=== PATIENT | female | born 1960 | race Caucasian/White ===

== ENCOUNTER 2018-12-26 05:19 | Day surgery (SDC) | payer MEDICARE, OTHER ==
[2018-12-26] MEDS ORDERED: Dextrose 5%-Lactated Ringers 1,000 ML IV SCH (06:00)
[2018-12-26] MEDS ORDERED: fentaNYL 100 MCG/2 ML SDV ONE (07:06)
[2018-12-26] MEDS ORDERED: Midazolam 1 MG/ML 2 ML SDV ONE (07:06)
[2018-12-26] MEDS ORDERED: Propofol 200 MG/20 ML SDV ONE (07:06)
[2018-12-26 08:40] VITALS: BP 125/73
--- NOTE | 2018-12-28 08:29 | OR ---
DATE OF PROCEDURE: 12/26/2018 SURGEON: Mukesh Ortega MD PREOPERATIVE DIAGNOSIS: Longstanding gastroesophageal reflux disease. POSTOPERATIVE DIAGNOSES: Longstanding gastroesophageal reflux disease associated with: 1. Minimal inflammation at esophagogastric junction. 2. Mild inflammation of the antrum and proximal duodenum. OPERATIVE PROCEDURE: Upper GI endoscopy with: 1. Biopsy of the esophagogastric junction for histologic evaluation. 2. Biopsies of antrum for CLOtest. ANESTHESIA: IV sedation. INDICATIONS FOR PROCEDURE: A 58-year-old female, referred for a followup upper endoscopy. She has longstanding gastroesophageal reflux disease, simply controlled fairly good presently with Nexium 20 mg a day. Plan is to proceed with upper GI endoscopy with biopsies as indicated. At the very least, we will obtain biopsies of the esophagogastric junction to establish the patient's H. pylori status. Potential risks of the procedure including bleeding and perforation were discussed, and the patient wishes to proceed. DETAILS OF PROCEDURE: The patient was taken to the operating room and placed in a left lateral decubitus position. IV sedation was administered, after which the upper GI endoscope was passed orally through the length of the esophagus and into the stomach with retroflexion view of the fundus and thereafter through the pyloric channel into the proximal duodenum. Findings included normal hypopharynx, larynx, upper esophageal sphincter, and esophageal body. No esophageal or gastric varices were identified. At the EG junction, a small hiatal hernia was present, perhaps in the range of 1 to 2 cm, but very minimal if any gross inflammation was present. No stricturing or plaque formation was seen, i.e. no suggestion of neoplastic change was grossly identified. Within the stomach, there was some quite mild inflammation within the antrum and duodenal bulb, consisting of some patchy reddened and edematous areas. No erosions or ulcers were seen. At this point, biopsies were obtained from the antrum and sent for CLOtest for H. pylori. Multiple biopsies were then obtained from esophagogastric junction and sent for histologic evaluation. Minimal bleeding from biopsy sites was seen, and the procedure was then concluded. The patient was taken to the recovery room in satisfactory condition. At this point, we will have the patient continue her present medications consisting of Nexium and routine followup with physician assistant customer service manager, Eri Huerta, will be maintained. If the patient has either positive CLOtest or Zheng's esophagus, we will notify the patient regarding appropriate treatment and followup at that point in time. Mukesh Ortega MD /[id number]
--- NOTE | 2018-12-29 08:08 | ANES ---
DATE OF SERVICE: 12/26/2018 ADDENDUM: Diprivan waste of 100 mg. Quincy Palma CRNA /[id number]
== END 2018-12-26 08:49 | disposition home or self-care (01) ==
LOC: JP.SDS 05:19
PROVIDERS: ATTEND Surgery
DX: K21.0 Gastro-esophageal reflux disease with esophagitis (principal); K22.70 Barrett's esophagus without dysplasia; K29.80 Duodenitis without bleeding; K31.89 Other diseases of stomach and duodenum; K44.9 Diaphragmatic hernia without obstruction or gangrene; J44.9 Chronic obstructive pulmonary disease, unspecified; G47.33 Obstructive sleep apnea (adult) (pediatric); E87.6 Hypokalemia; E11.22 Type 2 diabetes mellitus with diabetic chronic kidney disease; N18.9 Chronic kidney disease, unspecified; I50.9 Heart failure, unspecified; F41.9 Anxiety disorder, unspecified; F32.9 Major depressive disorder, single episode, unspecified; Z87.11 Personal history of peptic ulcer disease; Z88.1 Allergy status to other antibiotic agents; Z88.0 Allergy status to penicillin; Z88.2 Allergy status to sulfonamides; Z88.8 Allergy status to other drugs, medicaments and biological substances; Z91.048 Other nonmedicinal substance allergy status; Z91.040 Latex allergy status; Z79.82 Long term (current) use of aspirin; Z79.4 Long term (current) use of insulin; Z99.89 Dependence on other enabling machines and devices
CPT/HCPCS: 43239; 87081; 88305; J2250; J2704; J3010; J7042

== ENCOUNTER 2019-07-27 13:15 | Observation (INO) | payer MEDICARE, OTHER ==
[2019-07-27] MEDS ORDERED: Non-Formulary Medication 1 Each (Albuterol/Ipratropium [Combivent Respimat] 1 PUFF) IH PRN (14:26)
[2019-07-27] MEDS ORDERED: traZODone 50 MG Tab PO PRN (14:26)
[2019-07-27] MEDS ORDERED: Albuterol 0.083% 2.5 MG/3 ML Neb Soln NEB PRN (14:29)
[2019-07-27] MEDS ORDERED: Glucose Gel 15 GM in 37.5 GM Tube PO PRN (14:29)
[2019-07-27] MEDS ORDERED: 50% Dextrose in Water 50 ML Syringe IV PRN (14:29)
[2019-07-27] MEDS ORDERED: Polyethylene Glycol 3350 Powder 17 GM Packet PO PRN (14:29)
[2019-07-27] MEDS ORDERED: Ondansetron 4 MG/2 ML SDV IV PRN (14:29)
[2019-07-27] MEDS ORDERED: Acetaminophen 325 MG Tab PO PRN (14:29)
[2019-07-27] MEDS ORDERED: INSULIN DEGLUDEC 30 UNIT SQ SCH (14:30)
--- NOTE | 2019-07-27 14:41 | PCM.HP.2 ---
H&P History of Present Illness - General Date of Service: 07/27/19 Admit Problem/Dx: Admission Diagnosis/Problem Admission Diagnosis/Problem Subdural hematoma Source of Information: Patient, Provider, RN Notes Reviewed History Limitations: Reports: No Limitations - History of Present Illness Initial Comments - Free Text/Narative: Ms. Kyle is a 59-year-old woman who was admitted as a direct admission from the clinic to observation status, for monitoring of a traumatic head injury with a small subdural hematoma and tiny arachnoid hemorrhage. She slipped and fell last night hitting her head and has had a severe headache since that time. She was seen and evaluated at the clinic, CT scan showed the above findings. CT scan of the pelvis showed no acute fracture. She denies any acute neurologic changes or deficits other than ongoing headache. headache Pain Score (Numeric/FACES): 9 - Related Data Allergies/Adverse Reactions: Allergies Allergy/AdvReac Type Severity Reaction Status Date / Time cholecalciferol (vitamin D3) Allergy Severe Anaphylactic Verified 07/27/19 13:51 [From Vitamin D3] Shock folic acid Allergy Severe Anaphylactic Verified 07/27/19 13:51 Shock adhesive tape Allergy Other Verified 07/27/19 13:51 cephalexin monohydrate Allergy Hives Verified 07/27/19 13:51 [From Keflex] Penicillins Allergy Hives Verified 07/27/19 13:51 sucralfate [From Carafate] Allergy Hives Verified 07/27/19 13:51 Sulfa (Sulfonamide Allergy Hives Verified 07/27/19 13:51 Antibiotics) sulfasalazine Allergy Hives Verified 07/27/19 13:51 dihydrotachysterol Allergy Severe Anaphylactic Uncoded 07/27/19 13:51 Shock Home Medications: Home Meds Insulin Lispro [HumaLOG] 10 units SQ ASDIRECTED 12/09/14 [History] Spironolactone, Micronized [Spironolactone] 150 mg PO BID 12/09/14 [History] Aspirin [Jihan Chewable Aspirin] 81 mg PO DAILY 12/10/14 [History] Potassium Chloride [Klor-Con 10] 10 meq PO DAILY 01/30/15 [History] traZODone 50 mg PO BEDTIME PRN 01/30/15 [History] Magnesium Chloride [Slow-Mag] 250 mg PO DAILY 01/31/15 [History] Albuterol/Ipratropium [Combivent Respimat] 1 puff IH Q6H PRN 12/20/18 [History] Biotin 10 mg PO DAILY 12/20/18 [History] ClonazePAM [KlonoPIN] 1 - 2 mg PO ASDIRECTED PRN 12/20/18 [History] Esomeprazole [NexIUM] 20 mg PO DAILY 12/20/18 [History] Furosemide [Lasix] 40 mg PO DAILY 12/20/18 [History] Gabapentin [Neurontin] 600 mg PO TID 12/20/18 [History] Insulin Degludec [Tresiba Flextouch U-100] 30 unit SQ Q12H 12/20/18 [History] Loperamide [Imodium AD] 4 mg PO TIDMEALS 12/20/18 [History] Mycophenolate [Myfortic] 360 mg PO BID 12/20/18 [History] Oxybutynin 5 mg PO DAILY 12/20/18 [History] Tacrolimus [Prograf] 1 mg PO Q12H 12/20/18 [History] Topiramate [Topamax] 25 mg PO BID 12/20/18 [History] Venlafaxine [Effexor XR] 150 mg PO DAILY 12/20/18 [History] Calcium Carbonate [Calcium] 500 mg PO DAILY 07/27/19 [History] Cetirizine [ZyrTEC] 10 mg PO DAILY 07/27/19 [History] Simvastatin 10 mg PO DAILY 07/27/19 [History] Past Medical History HEENT History: Reports: Cataract Respiratory History: Reports: Bronchitis, Recurrent Gastrointestinal History: Reports: GERD, PUD 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: Musculoskeletal History: Reports: Other (See Below) Neurological History: Reports: Neuropathy, Diabetic Psychiatric History: Reports: Anxiety, Depression Endocrine/Metabolic History: Reports: Diabetes, Type II Hematologic History: Reports: Anemia Immunologic History: Reports: Immunosuppression, Solid Organ Transplant, Other ( See Below) Other Immunologic History: liver - Infectious Disease History Infectious Disease History: Reports: Chicken Pox, Hepatitis B, Measles, 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, Other - Past Surgical History HEENT Surgical History: Reports: Cataract Surgery, Tonsillectomy GI Surgical History: Reports: Appendectomy, Cholecystectomy, Colonoscopy, EGD, Other (See Below) Other GI Surgeries/Procedures: liver transplant Female Surgical History: Reports: Hysterectomy, Tubal Ligation Social & Family History - Family History Family Medical History: Noncontributory - Tobacco Use Smoking Status *Q: Never Smoker - Caffeine Use Caffeine Use: Reports: Soda - Recreational Drug Use Recreational Drug Use: No H&P Review of Systems - Review of Systems: Review Of Systems: See Below General: Reports: No Symptoms HEENT: Reports: Headaches. Denies: Ear Pain, Hearing Changes, Sinus Congestion , Sore Throat, Visual Changes Pulmonary: Reports: No Symptoms Cardiovascular: Reports: No Symptoms Gastrointestinal: Reports: No Symptoms Genitourinary: Reports: No Symptoms Musculoskeletal: Reports: No Symptoms Skin: Reports: No Symptoms Psychiatric: Reports: No Symptoms Neurological: Reports: Headache. Denies: Confusion, Dizziness, Numbness, Paresthesia, Trouble Speaking, Difficulty Walking, Change in Speech Hematologic/Lymphatic: Reports: No Symptoms Immunologic: Reports: No Symptoms Exam - Exam Exam: See Below - Vital Signs Vital Signs: Last Vital Signs Temp 97.6 F 07/27/19 13:40 Pulse 77 07/27/19 13:40 Resp 12 07/27/19 13:40 BP 113/67 07/27/19 13:40 Pulse Ox 97 07/27/19 13:40 Weight: 225 lb - Exam General: Alert, Oriented, Cooperative, Moderate Distress HEENT: PERRLA, Conjunctiva Clear, Hearing Intact, Normal Nasal Septum, Posterior Pharynx Clear Neck: Supple, Trachea Midline, +2 Carotid Pulse wo Bruit Lungs: Clear to Auscultation, Normal Respiratory Effort Cardiovascular: Regular Rate, Regular Rhythm, Normal S1, Normal S2. No: Systolic Murmur, Diastolic Murmur GI/Abdominal Exam: Soft, Non-Tender, No Organomegaly, No Distention Back Exam: Normal Inspection, Full Range of Motion Extremities: Non-Tender, No Pedal Edema Skin: Warm, Dry, Intact Neurological: Cranial Nerves Intact, Strength Equal Bilateral, Normal Speech, Normal Tone, Sensation Intact. No: Focal Deficit Neuro Extensive - Mental Status: Alert, Oriented x3, Normal Mood/Affect, Normal Cognition, Memory Intact Sepsis Event Note - Evaluation Sepsis Screening Result: No Definite Risk - Focused Exam Vital Signs: Vital Signs Temp Pulse Resp BP Pulse Ox 07/27/19 13:40 97.6 F 77 12 113/67 97 Date Exam was Performed: 07/27/19 Time Exam was Performed: 14:56 *Q Meaningful Use (ADM) - VTE *Q VTE Pharmacological Contraindications *Q: Active Hemorrhage - VTE Risk Assess *Q Each Risk Factor Represents 1 Point: Obesity ( BMI > 25 kg/m2) Total Score 1 Point Risk Factors: 1 Each Risk Factor Represents 2 Points: Age 60 - 74 Years Total Score 2 Point Risk Factors: 2 Each Risk Factor Represents 3 Points: None Total Score 3 Point Risk Factors: 0 Each Risk Factor Represents 5 Points: None Total Score 5 Point Risk Factors: 0 Venous Thromboembolism Risk Factor Score *Q: 3 Problem List Initiated/Reviewed/Updated: Yes Orders Last 24hrs: Active Orders 24 hr Category Date Time Status Patient Status [ADT] Routine ADT 07/27/19 14:29 Active Ambulate [RC] QID Care 07/27/19 14:29 Active Blood Glucose Check, Bedside [RC] QIDACANDBED Care 07/27/19 14:29 Active Communication Order [RC] STAT Care 07/27/19 14:29 Active Diabetes Education [RC] Click to Edit Care 07/27/19 14:29 Active Height and Weight [RC] DAILY Care 07/27/19 14:29 Active Intake and Output [RC] QSHIFT Care 07/27/19 14:29 Active Neuro Check [RC] Q4H Care 07/27/19 14:33 Active Notify Provider Vital Signs [RC] ASDIRECTED Care 07/27/19 14:29 Active Notify Provider [RC] PRN Care 07/27/19 14:29 Active Oxygen Therapy [RC] PRN Care 07/27/19 14:29 Active RT Aerosol Therapy [RC] ASDIRECTED Care 07/27/19 14:32 Active Up With Assistance [RC] ASDIRECTED Care 07/27/19 14:29 Active Up to Chair [RC] QID Care 07/27/19 14:29 Active VTE/DVT Education [RC] Per Unit Routine Care 07/27/19 14:29 Active Vital Signs [RC] Q4H Care 07/27/19 14:29 Active Consistent Carbohydrate Diet [DIET] Diet 07/27/19 Lunch Active Head wo Cont [CT] Urgent Exams 07/28/19 07:00 Ordered GLUCOSE POC LAB TO COLLECT [POC] QIDACANDBED Lab 08/01/19 07:30 Ordered GLUCOSE POC LAB TO COLLECT [POC] QIDACANDBED Lab 08/01/19 11:30 Ordered GLUCOSE POC LAB TO COLLECT [POC] QIDACANDBED Lab 08/01/19 16:30 Ordered GLUCOSE POC LAB TO COLLECT [POC] QIDACANDBED Lab 08/01/19 21:00 Ordered GLUCOSE POC LAB TO COLLECT [POC] QIDACANDBED Lab 08/02/19 07:30 Ordered GLUCOSE POC LAB TO COLLECT [POC] QIDACANDBED Lab 08/02/19 11:30 Ordered GLUCOSE POC LAB TO COLLECT [POC] QIDACANDBED Lab 08/02/19 16:30 Ordered GLUCOSE POC LAB TO COLLECT [POC] QIDACANDBED Lab 08/02/19 21:00 Ordered GLUCOSE POC LAB TO COLLECT [POC] QIDACANDBED Lab 08/03/19 07:30 Ordered GLUCOSE POC LAB TO COLLECT [POC] QIDACANDBED Lab 08/03/19 11:30 Ordered GLUCOSE POC LAB TO COLLECT [POC] QIDACANDBED Lab 08/03/19 16:30 Ordered GLUCOSE POC LAB TO COLLECT [POC] QIDACANDBED Lab 08/03/19 21:00 Ordered GLUCOSE POC LAB TO COLLECT [POC] QIDACANDBED Lab 08/04/19 07:30 Ordered GLUCOSE POC LAB TO COLLECT [POC] QIDACANDBED Lab 08/04/19 11:30 Ordered GLUCOSE POC LAB TO COLLECT [POC] QIDACANDBED Lab 08/04/19 16:30 Ordered GLUCOSE POC LAB TO COLLECT [POC] QIDACANDBED Lab 08/04/19 21:00 Ordered GLUCOSE POC LAB TO COLLECT [POC] QIDACANDBED Lab 08/05/19 07:30 Ordered GLUCOSE POC LAB TO COLLECT [POC] QIDACANDBED Lab 08/05/19 11:30 Ordered GLUCOSE POC LAB TO COLLECT [POC] QIDACANDBED Lab 08/05/19 16:30 Ordered GLUCOSE POC LAB TO COLLECT [POC] QIDACANDBED Lab 08/05/19 21:00 Ordered GLUCOSE POC LAB TO COLLECT [POC] QIDACANDBED Lab 08/06/19 07:30 Ordered GLUCOSE POC LAB TO COLLECT [POC] QIDACANDBED Lab 08/06/19 11:30 Ordered GLUCOSE POC LAB TO COLLECT [POC] QIDACANDBED Lab 08/06/19 16:30 Ordered GLUCOSE POC LAB TO COLLECT [POC] QIDACANDBED Lab 08/06/19 21:00 Ordered GLUCOSE POC LAB TO COLLECT [POC] QIDACANDBED Lab 08/07/19 07:30 Ordered GLUCOSE POC LAB TO COLLECT [POC] QIDACANDBED Lab 08/07/19 11:30 Ordered GLUCOSE POC LAB TO COLLECT [POC] QIDACANDBED Lab 08/07/19 16:30 Ordered GLUCOSE POC LAB TO COLLECT [POC] QIDACANDBED Lab 08/07/19 21:00 Ordered GLUCOSE POC LAB TO COLLECT [POC] QIDACANDBED Lab 08/08/19 07:30 Ordered GLUCOSE POC LAB TO COLLECT [POC] QIDACANDBED Lab 08/08/19 11:30 Ordered GLUCOSE POC LAB TO COLLECT [POC] QIDACANDBED Lab 08/08/19 16:30 Ordered GLUCOSE POC LAB TO COLLECT [POC] QIDACANDBED Lab 08/08/19 21:00 Ordered GLUCOSE POC LAB TO COLLECT [POC] QIDACANDBED Lab 08/09/19 07:30 Ordered GLUCOSE POC LAB TO COLLECT [POC] QIDACANDBED Lab 08/09/19 11:30 Ordered GLUCOSE POC LAB TO COLLECT [POC] QIDACANDBED Lab 08/09/19 16:30 Ordered GLUCOSE POC LAB TO COLLECT [POC] QIDACANDBED Lab 08/09/19 21:00 Ordered GLUCOSE POC LAB TO COLLECT [POC] QIDACANDBED Lab 08/10/19 07:30 Ordered GLUCOSE POC LAB TO COLLECT [POC] QIDACANDBED Lab 08/10/19 11:30 Ordered GLUCOSE POC LAB TO COLLECT [POC] QIDACANDBED Lab 08/10/19 16:30 Ordered GLUCOSE POC LAB TO COLLECT [POC] QIDACANDBED Lab 08/10/19 21:00 Ordered GLUCOSE POC LAB TO COLLECT [POC] QIDACANDBED Lab 08/11/19 07:30 Ordered GLUCOSE POC LAB TO COLLECT [POC] QIDACANDBED Lab 08/11/19 11:30 Ordered GLUCOSE POC LAB TO COLLECT [POC] QIDACANDBED Lab 08/11/19 16:30 Ordered GLUCOSE POC LAB TO COLLECT [POC] QIDACANDBED Lab 08/11/19 21:00 Ordered GLUCOSE POC LAB TO COLLECT [POC] QIDACANDBED Lab 08/12/19 07:30 Ordered GLUCOSE POC LAB TO COLLECT [POC] QIDACANDBED Lab 08/12/19 11:30 Ordered GLUCOSE POC LAB TO COLLECT [POC] QIDACANDBED Lab 08/12/19 16:30 Ordered GLUCOSE POC LAB TO COLLECT [POC] QIDACANDBED Lab 08/12/19 21:00 Ordered GLUCOSE POC LAB TO COLLECT [POC] QIDACANDBED Lab 08/13/19 07:30 Ordered GLUCOSE POC LAB TO COLLECT [POC] QIDACANDBED Lab 08/13/19 11:30 Ordered GLUCOSE POC LAB TO COLLECT [POC] QIDACANDBED Lab 08/13/19 16:30 Ordered GLUCOSE POC LAB TO COLLECT [POC] QIDACANDBED Lab 08/13/19 21:00 Ordered GLUCOSE POC LAB TO COLLECT [POC] QIDACANDBED Lab 08/14/19 07:30 Ordered GLUCOSE POC LAB TO COLLECT [POC] QIDACANDBED Lab 08/14/19 11:30 Ordered GLUCOSE POC LAB TO COLLECT [POC] QIDACANDBED Lab 08/14/19 16:30 Ordered GLUCOSE POC LAB TO COLLECT [POC] QIDACANDBED Lab 08/14/19 21:00 Ordered GLUCOSE POC LAB TO COLLECT [POC] QIDACANDBED Lab 08/15/19 07:30 Ordered GLUCOSE POC LAB TO COLLECT [POC] QIDACANDBED Lab 08/15/19 11:30 Ordered GLUCOSE POC LAB TO COLLECT [POC] QIDACANDBED Lab 08/15/19 16:30 Ordered GLUCOSE POC LAB TO COLLECT [POC] QIDACANDBED Lab 08/15/19 21:00 Ordered GLUCOSE POC LAB TO COLLECT [POC] QIDACANDBED Lab 08/16/19 07:30 Ordered GLUCOSE POC LAB TO COLLECT [POC] QIDACANDBED Lab 08/16/19 11:30 Ordered GLUCOSE POC LAB TO COLLECT [POC] QIDACANDBED Lab 08/16/19 16:30 Ordered GLUCOSE POC LAB TO COLLECT [POC] QIDACANDBED Lab 08/16/19 21:00 Ordered GLUCOSE POC LAB TO COLLECT [POC] QIDACANDBED Lab 08/17/19 07:30 Ordered GLUCOSE POC LAB TO COLLECT [POC] QIDACANDBED Lab 08/17/19 11:30 Ordered GLUCOSE POC LAB TO COLLECT [POC] QIDACANDBED Lab 08/17/19 16:30 Ordered GLUCOSE POC LAB TO COLLECT [POC] QIDACANDBED Lab 08/17/19 21:00 Ordered GLUCOSE POC LAB TO COLLECT [POC] QIDACANDBED Lab 08/18/19 07:30 Ordered GLUCOSE POC LAB TO COLLECT [POC] QIDACANDBED Lab 08/18/19 11:30 Ordered GLUCOSE POC LAB TO COLLECT [POC] QIDACANDBED Lab 08/18/19 16:30 Ordered GLUCOSE POC LAB TO COLLECT [POC] QIDACANDBED Lab 08/18/19 21:00 Ordered GLUCOSE POC LAB TO COLLECT [POC] QIDACANDBED Lab 08/19/19 07:30 Ordered GLUCOSE POC LAB TO COLLECT [POC] QIDACANDBED Lab 08/19/19 11:30 Ordered GLUCOSE POC LAB TO COLLECT [POC] QIDACANDBED Lab 08/19/19 16:30 Ordered GLUCOSE POC LAB TO COLLECT [POC] QIDACANDBED Lab 08/19/19 21:00 Ordered GLUCOSE POC LAB TO COLLECT [POC] QIDACANDBED Lab 08/20/19 07:30 Ordered GLUCOSE POC LAB TO COLLECT [POC] QIDACANDBED Lab 08/20/19 11:30 Ordered GLUCOSE POC LAB TO COLLECT [POC] QIDACANDBED Lab 08/20/19 16:30 Ordered GLUCOSE POC LAB TO COLLECT [POC] QIDACANDBED Lab 08/20/19 21:00 Ordered GLUCOSE POC LAB TO COLLECT [POC] QIDACANDBED Lab 08/21/19 07:30 Ordered GLUCOSE POC LAB TO COLLECT [POC] QIDACANDBED Lab 07/28/19 07:30 Ordered GLUCOSE POC LAB TO COLLECT [POC] QIDACANDBED Lab 07/28/19 11:30 Ordered GLUCOSE POC LAB TO COLLECT [POC] QIDACANDBED Lab 07/28/19 16:30 Ordered GLUCOSE POC LAB TO COLLECT [POC] QIDACANDBED Lab 07/28/19 21:00 Ordered GLUCOSE POC LAB TO COLLECT [POC] QIDACANDBED Lab 07/29/19 07:30 Ordered GLUCOSE POC LAB TO COLLECT [POC] QIDACANDBED Lab 07/29/19 11:30 Ordered GLUCOSE POC LAB TO COLLECT [POC] QIDACANDBED Lab 07/29/19 16:30 Ordered GLUCOSE POC LAB TO COLLECT [POC] QIDACANDBED Lab 07/29/19 21:00 Ordered GLUCOSE POC LAB TO COLLECT [POC] QIDACANDBED Lab 07/30/19 07:30 Ordered GLUCOSE POC LAB TO COLLECT [POC] QIDACANDBED Lab 07/30/19 11:30 Ordered GLUCOSE POC LAB TO COLLECT [POC] QIDACANDBED Lab 07/30/19 16:30 Ordered GLUCOSE POC LAB TO COLLECT [POC] QIDACANDBED Lab 07/30/19 21:00 Ordered GLUCOSE POC LAB TO COLLECT [POC] QIDACANDBED Lab 07/31/19 07:30 Ordered GLUCOSE POC LAB TO COLLECT [POC] QIDACANDBED Lab 07/31/19 11:30 Ordered GLUCOSE POC LAB TO COLLECT [POC] QIDACANDBED Lab 07/31/19 16:30 Ordered GLUCOSE POC LAB TO COLLECT [POC] QIDACANDBED Lab 07/31/19 21:00 Ordered Acetaminophen [Tylenol] Med 07/27/19 14:29 Ordered 650 mg PO Q4H PRN Albuterol [Proventil Neb Soln] Med 07/27/19 14:29 Ordered 2.5 mg NEB Q4H PRN Albuterol/Ipratropium [Combivent Respimat] Med 07/27/19 14:26 Ordered 1 puff IH Q6H PRN Biotin [Biotin] Med 07/28/19 09:00 Ordered 10 mg PO DAILY Cetirizine [ZyrTEC] Med 07/28/19 09:00 Ordered 10 mg PO DAILY Dextrose 50% in Water Med 07/27/19 14:29 Ordered 50 ml IV ONETIME PRN Dextrose [Glutose 15] Med 07/27/19 14:29 Ordered 15 gm PO ONETIME PRN Esomeprazole [NexIUM] Med 07/28/19 09:00 Ordered 20 mg PO DAILY Furosemide [Lasix] Med 07/28/19 09:00 Ordered 40 mg PO DAILY Gabapentin [Neurontin] Med 07/27/19 21:00 Ordered 600 mg PO TID Insulin Degludec [Tresiba Flextouch U-100] Med 07/27/19 14:30 Ordered 30 unit SQ Q12H Ondansetron [Zofran] Med 07/27/19 14:29 Ordered 4 mg IV Q4H PRN Oxybutynin Med 07/28/19 09:00 Ordered 5 mg PO DAILY Polyethylene Glycol 3350 [MiraLAX] Med 07/27/19 14:29 Ordered 17 gm PO DAILY PRN Potassium Chloride [Klor-Con 10] Med 07/28/19 09:00 Ordered 10 meq PO DAILY Simvastatin [Simvastatin] Med 07/28/19 09:00 Ordered 10 mg PO DAILY Tacrolimus [Prograf] Med 07/27/19 14:30 Ordered 1 mg PO Q12H Topiramate [Topamax] Med 07/27/19 21:00 Ordered 25 mg PO BID Venlafaxine [Effexor XR] Med 07/28/19 09:00 Ordered 150 mg PO DAILY oxyCODONE Med 07/27/19 14:29 Ordered 5 mg PO Q4H PRN traZODone Med 07/27/19 14:26 Ordered 50 mg PO BEDTIME PRN Sequential Compression Device [OM.PC] Per Unit Routine Oth 07/27/19 14:32 Ordered VTE Pharmacological Contraindications [AST] Per Unit Oth 07/27/19 14:29 Ordered Routine Resuscitation Status Routine Resus Stat 07/27/19 14:29 Ordered Medication Orders Acetaminophen (Tylenol) 650 mg PO Q4H PRN PRN Reason: Pain (Mild 1-3)/fever Albuterol (Proventil Neb Soln) 2.5 mg NEB Q4H PRN PRN Reason: Shortness Of Breath/wheezing Cetirizine HCl (Zyrtec) 10 mg PO DAILY [facility]IRE Dextrose (Glutose 15) 15 gm PO ONETIME PRN PRN Reason: Hypoglycemia Dextrose/Water (Dextrose 50% In Water) 50 ml IV ONETIME PRN PRN Reason: Hypoglycemia Furosemide (Lasix) 40 mg PO DAILY CLAIRE Gabapentin (Neurontin) 600 mg PO TID CLAIRE Non-Formulary Medication (Albuterol/Ipratropium [Combivent Respimat]) 1 puff IH Q6H PRN PRN Reason: Shortness of Breath Non-Formulary Medication (Biotin [Biotin]) 10 mg PO DAILY [facility] Non-Formulary Medication (Esomeprazole [Nexium]) 20 mg PO DAILY [facility] Non-Formulary Medication (Insulin Degludec [Tresiba Flextouch U-100]) 30 unit SQ Q12H [facility] Non-Formulary Medication (Potassium Chloride [Klor-Con 10]) 10 meq PO DAILY [facility] Non-Formulary Medication (Simvastatin [Simvastatin]) 10 mg PO DAILY [facility] Non-Formulary Medication (Venlafaxine [Effexor Xr]) 150 mg PO DAILY [facility] Ondansetron HCl (Zofran) 4 mg IV Q4H PRN PRN Reason: Nausea/Vomiting Oxybutynin Chloride (Oxybutynin) 5 mg PO DAILY [facility]IRE Oxycodone HCl (Oxycodone) 5 mg PO Q4H PRN PRN Reason: Pain (moderate 4-6) Polyethylene Glycol (Miralax) 17 gm PO DAILY PRN PRN Reason: Constipation Tacrolimus (Prograf) 1 mg PO Q12H CLAIRE Topiramate (Topamax) 25 mg PO BID CLAIRE Trazodone HCl (Trazodone) 50 mg PO BEDTIME PRN PRN Reason: Pain Assessment/Plan Comment:: ASSESSMENT AND PLAN TRAUMATIC HEAD INJURY WITH SUBDURAL HEMATOMA AND TINY SUBARACHNOID HEMORRHAGE- there are than headache has no current neurologic symptoms or deficits. -Hold aspirin -Neurochecks every 4 hours -Repeat CT scan in a.m. -Outpatient follow-up with neurosurgery TYPE 2 DIABETES MELLITUS -Continue usual dose of long-acting insulin -4 times daily glucometers -High-dose sliding scale Humalog STATUS [employer]ANSPLANT -Continue usual outpatient medications MAINTENANCE ISSUES -DVT prophylaxis; not indicated -GI prophylaxis; not indicated -Ramos catheter; not indicated -Nutrition; consistent carb diet -Nicotine dependence; not required CODE STATUS-FULL CODE ADMISSION STATUS-this patient will be admitted to observation status, expect no more than a one night hospital stay for evaluation and management of problems as outlined above. DISPOSITION-anticipate discharge to home after the hospital stay. PRIMARY CARE PROVIDER-Keny Huerta - Mortality Measure Prognosis:: Good
[2019-07-27] MEDS ORDERED: TRAZODONE 100 MG PO PRN (15:25)
[2019-07-27] MEDS ORDERED: COMBIVENT INH PRN (15:50)
[2019-07-27] MEDS: oxyCODONE 5 MG Tab PO PRN ×2 (16:07→20:05)
[2019-07-27] MEDS ORDERED: Insulin Lispro 100 Unit/ML 3 ML KwikPen SUBCUT SCH (17:00)
[2019-07-27] MEDS: NOVOLOG FLEX SUBCUT SCH ×2 (17:37→21:51)
[2019-07-27] MEDS: MYCOPHENOLIC ACID 180 MG PO SCH (21:44)
[2019-07-27] MEDS: Gabapentin 300 MG Cap (PTOM) PO SCH (21:44)
[2019-07-27] MEDS: TOPIRAMATE 25 MG PO SCH (21:45)
[2019-07-27] MEDS: TACROLIMUS 1 MG PO SCH (21:47)
[2019-07-27] MEDS: TRESIBA 100 UNIT/ML SUBCUT SCH (21:52)
[2019-07-28] MEDS: oxyCODONE 5 MG Tab PO PRN ×3 (00:04→09:30)
--- NOTE | 2019-07-28 06:13 | CRLCT ---
INDICATION: Follow-up subdural and subarachnoid hemorrhage. COMPARISON: COMPARISON DATE TECHNIQUE: CT examination of the head was performed with 3 mm thick axial sections without intravenous contrast. Images were obtained from the vertex of the skull through the skull base, and I examined the images with the brain and bone windows. Please note that all CT scans at this facility use dose modulation, iterative reconstruction, and/or weight-based dosing when appropriate to reduce radiation dose to as low as reasonably achievable. FINDINGS: There is stable appearance of a small left high anterior right falcine subdural hematoma with minimal adjacent subarachnoid hemorrhage. There is also stable thrombosis of a dural vein located more laterally to the right of midline. The rest of the brain is normal in appearance for the patient`s age on today`s study, with no sign of mass lesion, mass effect, hemorrhage, or edema. The ventricles and sulci are normal in appearance for the patient`s age. The visualized portions of the orbits are normal in appearance. The visualized paranasal sinuses and mastoids are clear. The osseous structures are normal in their appearance with no sign of abnormality in the skull base or calvarium. IMPRESSION: Stable small left high anterior right falcine subdural hematoma with minimal adjacent subarachnoid hemorrhage. No sign of mass effect upon the adjacent brain. No sign of any injury to the brain elsewhere. Please note that all CT scans at this facility use dose modulation, iterative reconstruction, and/or weight-based dosing when appropriate to reduce radiation dose to as low as reasonably achievable. Dictated by Hero Beltran MD @ Jul 28 2019 6:07AM Signed by Dr. Hero Beltran @ Jul 28 2019 6:11AM
[2019-07-28] MEDS: NOVOLOG FLEX SUBCUT SCH (07:03)
[2019-07-28 07:27] VITALS: BP 107/43; PULSE 72
[2019-07-28] MEDS ORDERED: ESOMEPRAZOLE 20 MG PO SCH (07:30)
[2019-07-28] MEDS: Gabapentin 300 MG Cap (PTOM) PO SCH (08:30)
[2019-07-28] MEDS: MYCOPHENOLIC ACID 180 MG PO SCH (08:31)
[2019-07-28] MEDS: TOPIRAMATE 25 MG PO SCH (08:32)
[2019-07-28] MEDS: TACROLIMUS 1 MG PO SCH (08:35)
[2019-07-28] MEDS: TRESIBA 100 UNIT/ML SUBCUT SCH (08:36)
[2019-07-28] MEDS ORDERED: Furosemide 40 MG Tab PO SCH (09:00)
[2019-07-28] MEDS ORDERED: OXYBUTYNIN 5 MG PO SCH (09:00)
[2019-07-28] MEDS ORDERED: KERATIN PO SCH (09:00)
[2019-07-28] MEDS ORDERED: Non-Formulary Medication 1 Each (Biotin [Biotin] 10 MG) PO SCH (09:00)
[2019-07-28] MEDS ORDERED: Furosemide 20 MG Tab (PTOM) PO SCH (09:00)
[2019-07-28] MEDS ORDERED: Non-Formulary Medication 1 Each (Venlafaxine [Effexor Xr] 150 MG) PO SCH (09:00)
[2019-07-28] MEDS ORDERED: Non-Formulary Medication 1 Each (Potassium Chloride [Klor-Con 10] 10 MEQ) PO SCH (09:00)
[2019-07-28] MEDS ORDERED: POTASSIUM CL 10 MEQ PO SCH (09:00)
[2019-07-28] MEDS ORDERED: SIMVASTATIN 10 MG PO SCH (09:00)
[2019-07-28] MEDS ORDERED: Non-Formulary Medication 1 Each (Esomeprazole [Nexium] 20 MG) PO SCH (09:00)
[2019-07-28] MEDS ORDERED: Cetirizine 10 MG Tab PO SCH (09:00)
[2019-07-28] MEDS ORDERED: BIOTIN PO SCH (09:00)
[2019-07-28] MEDS ORDERED: VENLAFAXINE 150 MG PO SCH (09:00)
[2019-07-28] MEDS ORDERED: Non-Formulary Medication 1 Each (Simvastatin [Simvastatin] 10 MG) PO SCH (09:00)
--- NOTE | 2019-07-28 09:13 | PCM.DCSUM1 ---
Discharge Summary - Hospital Course Brief History: Ms. Kyle is a 59-year-old woman who was admitted as a direct admission from the clinic to observation status for monitoring of small subdural hematoma and tiny subarachnoid hemorrhage secondary to traumatic head injury. - Discharge Data Discharge Date: 07/28/19 Discharge Disposition: Home, Self-Care 01 Condition: Fair - Referral to Home Health Primary Care Physician: Eri Huerta PA-C - Discharge Diagnosis/Problem(s) (1) Liver transplant recipient SNOMED Code(s): 704433411 ICD Code: Z94.4 - LIVER TRANSPLANT STATUS Status: Acute Current Visit: Yes (2) Subdural hematoma SNOMED Code(s): 544831050 ICD Code: S06.5X9A - TRAUM SUBDR HEM W LOC OF UNSP DURATION, INIT Status: Acute Current Visit: Yes (3) Subarachnoid hemorrhage SNOMED Code(s): 463654923 ICD Code: I60.9 - NONTRAUMATIC SUBARACHNOID HEMORRHAGE, UNSPECIFIED Status : Acute Current Visit: Yes (4) Type 2 diabetes mellitus SNOMED Code(s): 50989571 ICD Code: E11.9 - TYPE 2 DIABETES MELLITUS WITHOUT COMPLICATIONS Status: Acute Current Visit: Yes - Patient Summary/Data Hospital Course: Ms. Kyle is a 59-year-old woman who was admitted as a direct admission from the clinic to observation status, for monitoring of a traumatic head injury with a small subdural hematoma and tiny arachnoid hemorrhage. She slipped and fell last night hitting her head and has had a severe headache since that time. She was seen and evaluated at the clinic, CT scan showed the above findings. CT scan of the pelvis showed no acute fracture. She denies any acute neurologic changes or deficits other than ongoing headache. Neurochecks were obtained every 4 hours during hospitalization and showed no new neurologic findings. Headache improved moderately during hospitalization, she continued to experience pain in her sacrum. Follow-up CT scan of the head was obtained on the morning of discharge and showed that the subarachnoid hemorrhage and subdural hematoma were stable in size. Activity will be as tolerated and she will resume her usual diet. Follow-up appointment will be scheduled with her primary care provider within 1 week. Follow-up appointment will be scheduled with neurosurgery, with a follow-up head scan, in 2 weeks. She will return number immediately to the emergency department if she notes increasing headache or any new neurologic symptoms. - Patient Instructions Diet: Diabetic Diet Activity: As Tolerated Other/Special Instructions: Please schedule neurosurgical consult with follow- up CT scan in 2 weeks. Please schedule follow-up appointment with primary care provider within 1 week. Patient is to return to the emergency department if she notes increasing headache or any neurologic changes or symptoms. - Discharge Plan *PRESCRIPTION DRUG MONITORING PROGRAM REVIEWED*: Not Applicable *COPY OF PRESCRIPTION DRUG MONITORING REPORT IN PATIENT CYNDIE: Not Applicable Prescriptions/Med Rec: oxyCODONE 5 mg PO Q4H PRN #16 tablet PRN Reason: Pain (Moderate 4-6) Home Medications: Home Meds Insulin Lispro [HumaLOG] 10 units SQ ASDIRECTED 12/09/14 [History] Spironolactone, Micronized [Spironolactone] 150 mg PO BID 12/09/14 [History] Aspirin [Jihan Chewable Aspirin] 81 mg PO DAILY 12/10/14 [History] Potassium Chloride [Klor-Con 10] 10 meq PO DAILY 01/30/15 [History] traZODone 50 mg PO BEDTIME PRN 01/30/15 [History] Magnesium Chloride [Slow-Mag] 250 mg PO DAILY 01/31/15 [History] Albuterol/Ipratropium [Combivent Respimat] 1 puff IH Q6H PRN 12/20/18 [History] Biotin 10 mg PO DAILY 12/20/18 [History] ClonazePAM [KlonoPIN] 1 - 2 mg PO ASDIRECTED PRN 12/20/18 [History] Esomeprazole [NexIUM] 20 mg PO DAILY 12/20/18 [History] Furosemide [Lasix] 40 mg PO DAILY 12/20/18 [History] Gabapentin [Neurontin] 600 mg PO TID 12/20/18 [History] Insulin Degludec [Tresiba Flextouch U-100] 30 unit SQ Q12H 12/20/18 [History] Loperamide [Imodium AD] 4 mg PO TIDMEALS 12/20/18 [History] Mycophenolate [Myfortic] 360 mg PO BID 12/20/18 [History] Oxybutynin 5 mg PO DAILY 12/20/18 [History] Tacrolimus [Prograf] 1 mg PO Q12H 12/20/18 [History] Topiramate [Topamax] 25 mg PO BID 12/20/18 [History] Venlafaxine [Effexor XR] 150 mg PO DAILY 12/20/18 [History] Calcium Carbonate [Calcium] 500 mg PO DAILY 07/27/19 [History] Cetirizine [ZyrTEC] 10 mg PO DAILY 07/27/19 [History] Simvastatin 10 mg PO DAILY 07/27/19 [History] oxyCODONE 5 mg PO Q4H PRN #16 tablet 07/28/19 [Rx] Referrals: Eri Huerta PA-C [Primary Care Provider] - 08/03/19 3:30 pm - Discharge Summary/Plan Comment DC Time >30 min.: No - Patient Data Vitals - Most Recent: Last Vital Signs Temp 97.4 F 07/28/19 07:26 Pulse 72 07/28/19 07:26 Resp 12 07/28/19 07:26 BP 107/43 L 07/28/19 07:26 Pulse Ox 98 07/28/19 07:26 Weight - Most Recent: 225 lb I&O - Last 24 hours: Intake & Output 07/27/19 07/28/19 07/28/19 22:59 06:59 14:59 Intake Total 840 Balance 840 Med Orders - Current: Current Medications Acetaminophen (Tylenol) 650 mg PO Q4H PRN PRN Reason: Pain (Mild 1-3)/fever Albuterol (Proventil Neb Soln) 2.5 mg NEB Q4H PRN PRN Reason: Shortness Of Breath/wheezing Cetirizine HCl (Zyrtec) 10 mg PO DAILY [facility] Last Admin: 07/28/19 08:35 Dose: 10 mg Dextrose (Glutose 15) 15 gm PO ASDIRECTED PRN PRN Reason: Hypoglycemia Dextrose/Water (Dextrose 50% In Water) 50 ml IV ASDIRECTED PRN PRN Reason: Hypoglycemia Furosemide (Lasix) 40 mg PO DAILY [facility] Last Admin: 07/28/19 08:33 Dose: 40 mg Gabapentin (Neurontin) 600 mg PO TID [facility] Last Admin: 07/28/19 08:30 Dose: [address] 180 Mg TabOwn Med 2 each PO BID [facility] Last Admin: 07/28/19 08:31 Dose: 2 each Ondansetron HCl (Zofran) 4 mg IV Q4H PRN PRN Reason: Nausea/Vomiting Oxybutynin Chloride (Oxybutynin) 5 mg PO DAILY [facility] Last Admin: 07/28/19 08:34 Dose: 5 mg Oxycodone HCl (Oxycodone) 5 mg PO Q4H PRN PRN Reason: Pain (moderate 4-6) Last Admin: 07/28/19 05:20 Dose: 5 mg Trazodone 100mg Tab ((Ptom)) 0 each PO BEDTIME PRN PRN Reason: PAIN Last Admin: 07/27/19 21:46 Dose: 1 each Potassium Cl 10meq (Er Tab (Ptom)) 0 each PO DAILY [facility] Last Admin: 07/28/19 08:31 Dose: 1 each Simvastatin 10mg Tab ((Ptom)) 0 each PO DAILY [facility] Last Admin: 07/28/19 08:33 Dose: 1 each Esomeprazole 20mg (Cap (Ptom)) 0 each PO ACBREAKFAST [facility] Last Admin: 07/28/19 07:04 Dose: 1 each Venlafaxine Er 150mg (Cap (Ptom)) 0 each PO DAILY [facility] Last Admin: 07/28/19 08:34 Dose: 1 each Biotin With Keratin (10,000mcg (Ptom)) 0 each PO DAILY [facility] Last Admin: 07/28/19 08:35 Dose: 1 each Combivent Inhaler ( (Ptom)) 0 each INH Q6H PRN PRN Reason: Shortness of Breath Tresiba 100 Units/Ml ((Ptom)) 0 each SUBCUT Q12H [facility] Last Admin: 07/28/19 08:36 Dose: 1 each Novolog Flex Pen ( (Ptom)) 0 each SUBCUT QIDACANDBED [facility]; Protocol Last Admin: 07/28/19 07:03 Dose: 6 each Polyethylene Glycol (Miralax) 17 gm PO DAILY PRN PRN Reason: Constipation Tacrolimus (Prograf) 1 mg PO Q12H [facility] Last Admin: 07/28/19 08:35 Dose: 1 mg Topiramate (Topamax) 25 mg PO BID [facility] Last Admin: 07/28/19 08:32 Dose: 25 mg - Exam General: Reports: Alert, Oriented, Cooperative, Mild Distress Lungs: Reports: Clear to Auscultation, Normal Respiratory Effort Cardiovascular: Reports: Regular Rate, Regular Rhythm, No Murmurs GI/Abdominal Exam: Soft, Non-Tender, No Organomegaly, No Distention Neurological: Reports: No New Focal Deficit *Q Meaningful Use (DIS) - VTE *Q VTE Pharmacological Contraindications *Q: Active Hemorrhage
== END 2019-07-28 10:05 | disposition home or self-care (01) ==
LOC: JP.ICU 13:15
PROVIDERS: ADMIT Hospitalist; ATTEND Hospitalist
DX: S06.5X0A Traumatic subdural hemorrhage without loss of consciousness, initial encounter (principal); S06.6X0A Traumatic subarachnoid hemorrhage without loss of consciousness, initial encounter; K21.9 Gastro-esophageal reflux disease without esophagitis; E11.9 Type 2 diabetes mellitus without complications; F41.9 Anxiety disorder, unspecified; F32.9 Major depressive disorder, single episode, unspecified; W01.10XA Fall on same level from slipping, tripping and stumbling with subsequent striking against unspecified object, initial encounter; Z94.4 Liver transplant status; Z88.8 Allergy status to other drugs, medicaments and biological substances; Z91.048 Other nonmedicinal substance allergy status; Z88.0 Allergy status to penicillin; Z88.2 Allergy status to sulfonamides; Z79.4 Long term (current) use of insulin; Z79.899 Other long term (current) drug therapy; Z79.82 Long term (current) use of aspirin
CPT/HCPCS: 70450; 82962; A9270; G0378; G0379

== ENCOUNTER 2019-08-08 20:16 | Emergency (ER) | payer MEDICARE, OTHER ==
[2019-08-08] MEDS ORDERED: Sodium Chloride 0.9% 1,000 ML IV ONE (21:09)
[2019-08-08] MEDS ORDERED: Ondansetron 4 MG/2 ML SDV IVPUSH ONE (21:09)
--- NOTE | 2019-08-08 21:12 | EDM.PDOC ---
ED HPI GENERAL MEDICAL PROBLEM - General Chief Complaint: Gastrointestinal Problem Stated Complaint: VOMITING,DIARRHEA Time Seen by Provider: 08/08/19 20:55 Source of Information: Reports: Patient, Family History Limitations: Reports: No Limitations - History of Present Illness INITIAL COMMENTS - FREE TEXT/NARRATIVE: 67-year-old female with persistent nausea, vomiting, diarrhea for the past 3 days. She starting to feel weak. No blood in the emesis or diarrhea. Denies fevers or chills. Mild abdominal cramps only. She has not had an antibiotic in the last month and has not been traveling. She did receive a liver transplant 4 years ago and has been doing well. No exposure to gastroenteritis she knows of. Onset: Gradual Duration: Day(s): (3 days) Associated Symptoms: Reports: Malaise, Nausea/Vomiting, Weakness, Other ( Developing a dermatitis on her bottom from the diarrhea). Denies: Chest Pain, Shortness of Breath - Related Data Allergies Allergy/AdvReac Type Severity Reaction Status Date / Time cholecalciferol (vitamin D3) Allergy Severe Anaphylactic Verified 07/27/19 13:51 [From Vitamin D3] Shock folic acid Allergy Severe Anaphylactic Verified 07/27/19 13:51 Shock adhesive tape Allergy Other Verified 07/27/19 13:51 cephalexin monohydrate Allergy Hives Verified 07/27/19 13:51 [From Keflex] Penicillins Allergy Hives Verified 07/27/19 13:51 sucralfate [From Carafate] Allergy Hives Verified 07/27/19 13:51 Sulfa (Sulfonamide Allergy Hives Verified 07/27/19 13:51 Antibiotics) sulfasalazine Allergy Hives Verified 07/27/19 13:51 dihydrotachysterol Allergy Severe Anaphylactic Uncoded 07/27/19 13:51 Shock Home Meds: Home Meds Insulin Lispro [HumaLOG] 10 units SQ ASDIRECTED 12/09/14 [History] Spironolactone, Micronized [Spironolactone] 150 mg PO BID 12/09/14 [History] Aspirin [Jihan Chewable Aspirin] 81 mg PO DAILY 12/10/14 [History] Potassium Chloride [Klor-Con 10] 10 meq PO DAILY 01/30/15 [History] traZODone 50 mg PO BEDTIME PRN 01/30/15 [History] Magnesium Chloride [Slow-Mag] 250 mg PO DAILY 01/31/15 [History] Albuterol/Ipratropium [Combivent Respimat] 1 puff IH Q6H PRN 12/20/18 [History] Biotin 10 mg PO DAILY 12/20/18 [History] ClonazePAM [KlonoPIN] 1 - 2 mg PO ASDIRECTED PRN 12/20/18 [History] Esomeprazole [NexIUM] 20 mg PO DAILY 12/20/18 [History] Furosemide [Lasix] 40 mg PO DAILY 12/20/18 [History] Gabapentin [Neurontin] 600 mg PO TID 12/20/18 [History] Insulin Degludec [Tresiba Flextouch U-100] 30 unit SQ Q12H 12/20/18 [History] Loperamide [Imodium AD] 4 mg PO TIDMEALS 12/20/18 [History] Mycophenolate [Myfortic] 360 mg PO BID 12/20/18 [History] Oxybutynin 5 mg PO DAILY 12/20/18 [History] Tacrolimus [Prograf] 1 mg PO Q12H 12/20/18 [History] Topiramate [Topamax] 25 mg PO BID 12/20/18 [History] Venlafaxine [Effexor XR] 150 mg PO DAILY 12/20/18 [History] Calcium Carbonate [Calcium] 500 mg PO DAILY 07/27/19 [History] Cetirizine [ZyrTEC] 10 mg PO DAILY 07/27/19 [History] Simvastatin 10 mg PO DAILY 07/27/19 [History] oxyCODONE 5 mg PO Q4H PRN #16 tablet 07/28/19 [Rx] Past Medical History HEENT History: Reports: Cataract Respiratory History: Reports: Bronchitis, Recurrent Gastrointestinal History: Reports: GERD, PUD Genitourinary History: Reports: Diabetic Nephropathy 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: Musculoskeletal History: Reports: Other (See Below) Neurological History: Reports: Neuropathy, Diabetic Psychiatric History: Reports: Anxiety, Depression Endocrine/Metabolic History: Reports: Diabetes, Type II Hematologic History: Reports: Anemia Immunologic History: Reports: Immunosuppression, Solid Organ Transplant, Other ( See Below) Other Immunologic History: liver - Infectious Disease History Infectious Disease History: Reports: Chicken Pox, Hepatitis B, Measles, 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, Other - Past Surgical History HEENT Surgical History: Reports: Cataract Surgery, Tonsillectomy GI Surgical History: Reports: Appendectomy, Cholecystectomy, Colonoscopy, EGD, Other (See Below) Other GI Surgeries/Procedures: liver transplant Female Surgical History: Reports: Hysterectomy, Tubal Ligation Social & Family History - Family History Family Medical History: Noncontributory - Tobacco Use Smoking Status *Q: Former Smoker Used Tobacco, but Quit: Yes Month/Year Tobacco Last Used: 13 years ago - Caffeine Use Caffeine Use: Reports: Soda - Recreational Drug Use Recreational Drug Use: No ED ROS GENERAL - Review of Systems Review Of Systems: See Below Constitutional: Reports: Malaise, Weakness, Decreased Appetite. Denies: Fever, Chills HEENT: Reports: No Symptoms Respiratory: Denies: Shortness of Breath Cardiovascular: Denies: Chest Pain GI/Abdominal: Reports: Abdominal Pain, Diarrhea, Nausea, Vomiting. Denies: Constipation, Hematemesis, Hematochezia : Reports: No Symptoms Musculoskeletal: Reports: Other (Fell on her tailbone a week and a half ago, still sore) Skin: Reports: Other (Skin feels "dry") Neurological: Denies: Headache ED EXAM, GI/ABD - Physical Exam Exam: See Below Exam Limited By: No Limitations General Appearance: Alert, No Apparent Distress Eyes: Bilateral: Normal Appearance (No jaundice) Head: Atraumatic Respiratory/Chest: No Respiratory Distress, Lungs Clear Cardiovascular: Regular Rate, Rhythm GI/Abdominal Exam: Normal Bowel Sounds, Soft, Tender (Mild tenderness to the center of the abdomen to palpation but no focal guarding or rebound) Neurological: Alert, Oriented Psychiatric: Normal Affect, Normal Mood Course - Vital Signs Last Recorded V/S: Last Vital Signs Temp 97.3 F 08/08/19 20:53 Pulse 67 08/08/19 23:11 Resp 16 08/08/19 20:53 BP 113/57 L 08/08/19 23:11 Pulse Ox 95 08/08/19 20:53 - Orders/Labs/Meds Orders: Active Orders 24 hr Category Date Time Status CLOS DIFFICILE PCR W/REFLEX [RM] Stat Lab 08/08/19 21:35 Results CULTURE STOOL + SHIGATOX [RM] Stat Lab 08/08/19 21:35 Results Labs: Laboratory Tests 08/08/19 08/08/19 Range/Units 21:25 21:25 WBC 6.6 (4.5-11.0) K/uL RBC 4.52 (3.30-5.50) M/uL Hgb 14.1 D (12.0-15.0) g/dL Hct 40.7 (36.0-48.0) % MCV 90 (80-98) fL MCH 31 (27-31) pg MCHC 35 (32-36) % Plt Count 176 (150-400) K/uL Neut % (Auto) 65 (36-66) % Lymph % (Auto) 27 (24-44) % Moody % (Auto) 7 H (2-6) % Eos % (Auto) 1 L (2-4) % Baso % (Auto) 0 (0-1) % Sodium 139 L (140-148) mmol/L Potassium 3.0 L (3.6-5.2) mmol/L Chloride 103 (100-108) mmol/L Carbon Dioxide 25 (21-32) mmol/L Anion Gap 14.0 (5.0-14.0) mmol/L BUN 11 D (7-18) mg/dL Creatinine 0.9 (0.6-1.0) mg/dL Est Cr Clr Drug Dosing 73.37 mL/min Estimated GFR (MDRD) > 60 (>60) Glucose 174 H (74-106) mg/dL Calcium 8.4 L (8.5-10.1) mg/dL Total Bilirubin 0.6 D (0.2-1.0) mg/dL AST 21 (15-37) U/L ALT 32 (12-78) U/L Alkaline Phosphatase 167 H D (46-116) U/L Total Protein 7.0 (6.4-8.2) g/dL Albumin 3.3 L (3.4-5.0) g/dL Globulin 3.7 H (2.3-3.5) g/dL Albumin/Globulin Ratio 0.9 L (1.2-2.2) Meds: Medications Discontinued Medications Generic Name Dose Route Start Last Admin Trade Name Freq PRN Reason Stop Dose Admin Sodium Chloride 1,000 mls @ 999 mls/hr 08/08/19 21:09 08/08/19 21:35 Normal Saline IV 08/08/19 22:09 999 mls/hr ONETIME ONE Administration Potassium Chloride 20 meq/ 100 mls @ 50 mls/hr 08/08/19 21:49 08/08/19 22:00 Premix IV 08/08/19 23:48 50 mls/hr ONETIME ONE Administration Ondansetron HCl 4 mg 08/08/19 21:09 08/08/19 21:35 Zofran IVPUSH 08/08/19 21:10 4 mg ONETIME ONE Administration - Re-Assessments/Exams Free Text/Narrative Re-Assessment/Exam: 08/08/19 21:12 Patient will be hydrated with a liter of normal saline and given milligrams of IV Zofran. A stool will be collected if possible, CBC and CMP were obtained. 08/08/19 21:50 Initial blood tests look reassuring with a normal CBC, potassium is 3.0 but otherwise electrolytes are basically normal. 20 mEq of KCl was added to the IV fluid. A very small amount of liquid stool was obtained for stool tests, WBC, C. difficile and culture and Gram stain were obtained. 08/08/19 22:46 Stool showed no WBCs, C. difficile was negative. Patient was encouraged to take probiotics for the next 48 hours, and was discharged with 5 doses of Zofran to use for nausea. Increase diet slowly concentrating on fluids and return if not improving in the next 24 to 48 hours. Departure - Departure Time of Disposition: 23:52 Disposition: Home, Self-Care 01 Clinical Impression: Gastroenteritis - Discharge Information Instructions: Viral Gastroenteritis, Adult, [id number] Referrals: Eri Huerta PA-C [Primary Care Provider] - Forms: ED Department Discharge Care Plan Goals: Try probiotics to replace bacteria for the next 48 hours, and use Zofran for nausea and vomiting if needed. Increase diet and activity as tolerated concentrating on fluids initially. Recheck in 24 to 48 hours if not improving satisfactorily. Sepsis Event Note - Evaluation Sepsis Screening Result: No Definite Risk - Focused Exam Vital Signs: Vital Signs Temp Pulse Resp BP Pulse Ox 08/08/19 23:11 67 113/57 L 08/08/19 22:30 63 120/65 08/08/19 21:42 62 140/49 L 08/08/19 20:53 97.3 F 75 16 147/63 H 95 Date Exam was Performed: 08/09/19 Time Exam was Performed: 00:42 - My Orders Last 24 Hours: My Active Orders 08/08/19 21:35 CLOS DIFFICILE PCR W/REFLEX [RM] Stat CULTURE STOOL + SHIGATOX [RM] Stat - Assessment/Plan Last 24 Hours: My Active Orders 08/08/19 21:35 CLOS DIFFICILE PCR W/REFLEX [RM] Stat CULTURE STOOL + SHIGATOX [RM] Stat
[2019-08-08] MEDS ORDERED: Potassium Chloride 20 MEQ in Premix Bag 1 BAG IV ONE (21:49)
[2019-08-08 23:21] VITALS: BP 113/57; PULSE 67
== END 2019-08-08 23:52 | disposition home or self-care (01) ==
LOC: JP.ED 20:16
DX: K52.9 Noninfective gastroenteritis and colitis, unspecified (principal); K21.9 Gastro-esophageal reflux disease without esophagitis; E11.21 Type 2 diabetes mellitus with diabetic nephropathy; E11.40 Type 2 diabetes mellitus with diabetic neuropathy, unspecified; F32.9 Major depressive disorder, single episode, unspecified; Z88.8 Allergy status to other drugs, medicaments and biological substances; Z91.048 Other nonmedicinal substance allergy status; Z88.1 Allergy status to other antibiotic agents; Z88.0 Allergy status to penicillin; Z88.2 Allergy status to sulfonamides; Z79.82 Long term (current) use of aspirin; Z79.4 Long term (current) use of insulin; Z79.899 Other long term (current) drug therapy; Z87.891 Personal history of nicotine dependence
CPT/HCPCS: 36415; 80053; 85025; 87046; 87493; 87899; 89055; 96365; 96366; 96375; 99284; J2405; J3480; J7030

== ENCOUNTER 2020-11-17 10:31 | Day surgery (SDC) | payer MEDICARE, OTHER ==
[~2020-11-17 10:31] MED LIST: Bupivacaine 0.5% 50 ML MDV ONE; Lidocaine 2% 20 ML MDV ONE
[2020-11-17] MEDS ORDERED: fentaNYL 100 MCG/2 ML SDV ONE (10:36)
[2020-11-17] MEDS ORDERED: Midazolam 1 MG/ML 2 ML SDV ONE (10:36)
[2020-11-17] MEDS ORDERED: Propofol 200 MG/20 ML SDV ONE (10:37)
[2020-11-17] MEDS ORDERED: Lactated Ringers 1,000 ML IV SCH (11:15)
[2020-11-17] MEDS ORDERED: Clindamycin Phosphate 900 MG in Sodium Chloride 0.9% 100 ML IV ONE (12:15)
--- NOTE | 2020-11-17 14:48 | OR ---
DATE OF PROCEDURE: 11/17/2020 SURGEON: Bradley Sauceda DPM EGG SEPARATOR: None. PREOPERATIVE DIAGNOSIS: Mass, right foot, sub fifth metatarsal head. POSTOPERATIVE DIAGNOSIS: Mass, right foot, sub fifth metatarsal head. PROCEDURE: Excision of mass, sub fifth metatarsal head, right foot. ANESTHESIA: Local with IV sedation. HEMOSTASIS: Obtained with an ankle tourniquet on the right ankle at 250 mmHg. ESTIMATED BLOOD LOSS: 5 mL. MATERIALS: None. INJECTABLES: Total 10 mL of Marcaine 0.5% plain were injected. PATHOLOGY: Soft tissue mass sent. CONDITION: Stable. INDICATIONS FOR SURGERY: Painful mass, right foot, sub fifth metatarsal head that was unresponsive to conservative measures. PROCEDURE IN DETAIL: The patient was brought to the operating room, placed on the operating table in a supine position. Following IV sedation, anesthesia was obtained with a total of 10 mL of Marcaine 0.5% plain. The right foot was then scrubbed, prepped, and draped in the usual aseptic manner raised to 60 degrees for hemostasis and exsanguinated using an Esmarch bandage. Tourniquet was inflated. Foot was lowered to the table. Skin incision was made on the plantar lateral aspect of the right fifth metatarsal head. The incision length was approximately 3 cm. Incisions were deepened through subcutaneous tissues with care taken to identify and retract all vital neurovascular structures. The subcutaneous mass was identified and carefully isolated. The boundaries of it were found through sharp and blunt dissection with a Berry tenotomy scissors and that was removed and sent to pathology. Incision was checked and palpated to make sure none of the mass was left. Incision was then flushed out with copious amounts of sterile saline. Subcutaneous closure was done with 3-0 Vicryl and skin closure with 3-0 nylon in a horizontal mattress type configuration and then dressed with Xeroform, 4x4s, Kerlix, and Coban. The patient was returned to recovery room with vital signs stable and vascular status intact to both feet. The patient was given instructions to do partial weightbearing on the right heel only in a Cam boot, ambulate with crutches or walker, keep dressings clean, dry, and intact, and go to the emergency room immediately if she has any nausea, vomiting, fever, chills, chest pain, calf pain, or difficulty breathing. The patient to return to clinic with Dr. Sauceda in 1 week. Bradley Sauceda DPM /[id number]
[2020-11-17 15:08] VITALS: BP 122/77; PULSE 69
== END 2020-11-17 15:30 | disposition home or self-care (01) ==
LOC: JP.SDS 10:31
PROVIDERS: ATTEND Podiatrist Foot & Ankle Surgery
DX: M79.89 Other specified soft tissue disorders (principal); J44.9 Chronic obstructive pulmonary disease, unspecified; G47.33 Obstructive sleep apnea (adult) (pediatric); I13.0 Hypertensive heart and chronic kidney disease with heart failure and stage 1 through stage 4 chronic kidney disease, or unspecified chronic kidney disease; E11.22 Type 2 diabetes mellitus with diabetic chronic kidney disease; I50.32 Chronic diastolic (congestive) heart failure; N18.30 Chronic kidney disease, stage 3 unspecified; E78.49 Other hyperlipidemia; E11.42 Type 2 diabetes mellitus with diabetic polyneuropathy; Z79.899 Other long term (current) drug therapy; Z79.4 Long term (current) use of insulin; Z88.0 Allergy status to penicillin; Z88.2 Allergy status to sulfonamides
CPT/HCPCS: 28039; 88304; J2250; J2704; J3010; J3490; J7120